=== PATIENT | female | born 1940 | race Caucasian/White ===

== ENCOUNTER 2022-11-16 12:05 | Emergency (ER) | payer BC ==
[2022-11-16 12:12] VITALS: BMI 25.4
[2022-11-16 12:56] LABS: BASO % 1.4 % (0-2.0); HEMOGLOBIN 13.7 GM/dL (10.7-15.3); LYMPH % 23.2 % (8-40); MCH 28.7 pg (25.7-33.7); MCHC 34.2 g/dl (32.0-36.0); MEAN CELL VOLUME 83.9 fl (80-96); MEAN PLT VOLUME 8.3 fl (7.5-11.1); MONO % 4.9 % (3.8-10.2); NEUT % 67.5 % (42.8-82.8); PLATELET COUNT 276 10^3/uL (134-434); RBC 4.77 M/mm3 (3.60-5.2); RDW 12.9 % (11.6-15.6); WHITE BLOOD COUNT 6.4 K/mm3 (4.0-10.0)
[2022-11-16 13:32] LABS: ALBUMIN 3.7 g/dl (3.4-5.0); BLOOD UREA NITROGEN 20.3 mg/dL (7-18); CALCIUM 9.2 mg/dL (8.5-10.1)
[2022-11-16 13:33] LABS: MAGNESIUM 2.2 mg/dL (1.8-2.4)
[2022-11-16 13:36] LABS: CREATININE 0.7 mg/dL (0.55-1.3)
[2022-11-16 13:37] LABS: BILIRUBIN,TOTAL 0.9 mg/dL (0.2-1)
[2022-11-16 13:38] LABS: TOT PROT 6.8 g/dl (6.4-8.2)
[2022-11-16 14:07] VITALS: BP 180/77; PULSE 64; RESP 20; TEMP 97.5
== END 2022-11-16 14:10 | disposition home or self-care (01) ==
LOC: JER 12:05
DX: R25.2 Cramp and spasm (principal)
CPT/HCPCS: 36415; 80053; 83735; 85025; 93971-TC; 99284-25

== ENCOUNTER 2023-06-19 00:39 | Emergency (ER) | payer BC, OTHER ==
[2023-06-19 00:44] VITALS: BMI 24.4
[2023-06-19] MEDS ORDERED: SODIUM CHLORIDE 0.9% 500 ML INFUS.BAG IV ONE (01:26)
[2023-06-19 01:56] LABS: BASO % 0.5 % (0-2.0); EOS % 0.1 % (0-4.5); HEMATOCRIT 43.2 % (32.4-45.2); HEMOGLOBIN 14.4 GM/dL (10.7-15.3); LYMPH % 8.9 % (8-40); MCHC 33.4 g/dl (32.0-36.0); MEAN CELL VOLUME 83.8 fl (80-96); MEAN PLT VOLUME 8.2 fl (7.5-11.1); NEUT % 84.5 % (42.8-82.8); PLATELET COUNT 290 10^3/uL (134-434); RBC 5.15 M/mm3 (3.60-5.2); RDW 13.1 % (11.6-15.6); WHITE BLOOD COUNT 12.9 K/mm3 (4.0-10.0)
[2023-06-19 01:58] LABS: INR 1.17 (0.83-1.09); PROTHROMBIN TIME (PATIENT) 13.6 SEC (9.7-13.0)
[2023-06-19 02:00] LABS: ACTIVATED PTT 34.9 SECONDS (25.2-36.5)
[2023-06-19 02:15] LABS: POTASSIUM 4.1 mmol/L (3.5-5.1)
[2023-06-19 02:18] LABS: ALBUMIN 3.9 g/dl (3.4-5.0); BLOOD UREA NITROGEN 20.7 mg/dL (7-18); CALCIUM 9.6 mg/dL (8.5-10.1); MAGNESIUM 2.3 mg/dL (1.8-2.4)
[2023-06-19 02:22] LABS: CREATININE 0.9 mg/dL (0.55-1.3)
[2023-06-19 02:23] LABS: BILIRUBIN,TOTAL 0.8 mg/dL (0.2-1); TOT PROT 7.4 g/dl (6.4-8.2)
[2023-06-19 02:55] LABS: URINE APPEARANCE CLEAR; URINE BILIRUBIN NEGATIVE (NEGATIVE); URINE COLOR YELLOW; URINE GLUCOSE (UA) NEGATIVE (NEGATIVE); URINE KETONE TRACE (NEGATIVE); URINE LEUK ESTERASE NEGATIVE (NEGATIVE); URINE NITRITE NEGATIVE (NEGATIVE); URINE PROTEIN NEGATIVE (NEGATIVE)
[2023-06-19 05:22] VITALS: BP 143/54; PULSE 77; RESP 24
[2023-06-19] MEDS ORDERED: ACETAMINOPHEN 1000 MG/100 ML BAG IVPB ONE (05:22)
[2023-06-19] MEDS ORDERED: ACETAMINOPHEN INJECTION 100 ML IVPB ONE (05:25)
[2023-06-19 06:40] VITALS: TEMP 99.5
== END 2023-06-19 06:40 | disposition home or self-care (01) ==
LOC: JER 00:39
PROC: 3E033NZ Introduction of Analgesics, Hypnotics, Sedatives into Peripheral Vein, Percutaneous Approach (ICD-10-PCS; principal; 2023-06-19)
DX: R53.1 Weakness (principal); R40.0 Somnolence; Z20.822 Contact with and (suspected) exposure to COVID-19
CPT/HCPCS: 0241U-QW; 36415; 70450-TC; 71045-TC-FY; 80053; 80307; 81003; 82550; 83735; 84443; 84484; 85025; 85610; 85730; 86850; 86900; 86901; 87086; 93005; 93010; 96374; 99285-25